=== PATIENT | female | born 1965 | race Caucasian/White ===

== ENCOUNTER → 2020-09-18 | Outpatient (CLI) | payer BC | END | disposition home or self-care (01) | LOC: RAD 12:17 | PROVIDERS: ATTEND Chiropractor Orthopedic | DX: M47.816 Spondylosis without myelopathy or radiculopathy, lumbar region (principal); M99.03 Segmental and somatic dysfunction of lumbar region; Z90.49 Acquired absence of other specified parts of digestive tract ==